=== PATIENT | male | born 1945 | race American Indian/Alaskan Native ===

== ENCOUNTER 2019-07-21 07:49 | Outpatient (CLI) | payer OTHER | END 2019-07-21 07:56 | disposition home or self-care (01) | LOC: NUCLEAR 07:49 | DX: C61 Malignant neoplasm of prostate (principal) | CPT/HCPCS: 78803; A9503 ==

== ENCOUNTER 2020-12-10 10:35 | Outpatient (CLI) | payer OTHER | END 2020-12-10 10:47 | disposition home or self-care (01) | LOC: RAD 10:35 | PROVIDERS: ATTEND Family Medicine | DX: M54.2 Cervicalgia (principal) ==

== ENCOUNTER 2021-01-24 09:34 | Outpatient (CLI) | payer OTHER | END 2021-01-24 09:40 | disposition home or self-care (01) | LOC: RAD 09:34 | PROVIDERS: ATTEND Family Medicine | DX: M54.5 Low back pain (principal) ==

== ENCOUNTER 2022-06-11 00:58 | Emergency (ER) | payer OTHER ==
[~2022-06-11] VITALS: Ht 170.2 cm; Wt 78.0 kg
[2022-06-11] MEDS ORDERED: LIPITOR20 MG (01:08)
[2022-06-11] MEDS ORDERED: CRESTOR20 MG (01:09)
[2022-06-11] MEDS ORDERED: CIPRO500 MG PO (03:39)
== END 2022-06-11 04:10 ==
LOC: ER 00:58
DX: R34 Anuria and oliguria (principal); R31.9 Hematuria, unspecified; Z88.6 Allergy status to analgesic agent

== ENCOUNTER 2022-07-17 11:54 | Outpatient (CLI) | payer OTHER ==
[~2022-07-17 11:54] MED LIST: CIPRO500 MG PO; CRESTOR20 MG; LIPITOR20 MG
== END 2022-07-17 12:01 | disposition home or self-care (01) ==
LOC: SONOGRAMA 11:54
PROVIDERS: ATTEND Urology
DX: C61 Malignant neoplasm of prostate (principal); R31.0 Gross hematuria; F52.21 Male erectile disorder

== ENCOUNTER 2022-11-06 08:34 | Outpatient (CLI) | payer OTHER | END 2022-11-06 08:43 | disposition home or self-care (01) | LOC: TOM 08:34 | PROVIDERS: ATTEND Family Medicine | DX: R10.10 Upper abdominal pain, unspecified (principal); R10.13 Epigastric pain; Z85.46 Personal history of malignant neoplasm of prostate | CPT/HCPCS: 74177; Q9965 ==